=== PATIENT | female | born 1975 ===

== ENCOUNTER 2023-08-14 10:20 | Emergency (ER) | payer OTHER, SELFPAY ==
--- NOTE | ~2023-08-14 | XR_ITS ---
EXAMINATION: XR ABDOMEN KUB CLINICAL INDICATION: Constipation COMPARISON: None available. TECHNIQUE: AP view of the abdomen. FINDINGS: Large amount of stool in the colon suggestive of constipation. No evidence of obstruction or free air. No calcifications. Mild curvature of the lower lumbar spine to the left and degenerative change. XR/XR KUB IMPRESSION: Constipation.
[2023-08-14 10:24] VITALS: BP 137/65; PULSE 65; RESP 19; TEMP 37.2; O2SAT 98; BMI 30.9
--- NOTE | 2023-08-14 11:07 | ED.GENADULT ---
HPI - General Adult General Chief complaint: General Medical Stated complaint: tooth pain, constipation Time Seen by Provider: 08/14/23 11:18 History of Present Illness ED Provider: Patient with multiple complaints HPI narrative: Patient complains of most important right upper tooth pain for several weeks gradually getting worse 2nd complaint is right ear pain Third complaint is for many weeks she feels like her urine is coming more frequently, but no pain no fever no vomiting Fourth complaint is chronic constipation, no abdominal pain no nausea or vomiting no fever, this is an ongoing problem Related Data Previous Rx's ?Medication ?Instructions ?Recorded acetaminophen 500 mg tablet 1,000 mg (2 x 500 mg) PO QID PRN 08/14/23 pain #30 tabs amoxicillin 500 mg tablet 500 mg PO TID 7 days #21 tabs 08/14/23 bisacodyl 10 mg rectal suppository 10 mg NE DAILY PRN constipation 08/14/23 (Dulcolax (bisacodyl)) #12 ea bisacodyl 5 mg tablet,delayed 5 mg PO BEDTIME 2 days #2 tabs 08/14/23 release (Dulcolax (bisacodyl)) ibuprofen 600 mg tablet 600 mg PO Q6H PRN pain #20 tabs 08/14/23 sodium phosphates 19 gram-7 118 ml NE BEDTIME PRN constipation 08/14/23 gram/118 mL enema (Fleet Enema) #133 mL Allergies Allergy/AdvReac Type Severity Reaction Status Date / Time No Known Allergies Allergy Verified 08/14/23 10:26 COUNTS INCLUDE 234 BEDS AT THE [facility] Past Medical History Source: nursing notes reviewed Social History Social History Advance Directives: No Advance Directives Information Provided: No Physical Exam ED Vital Signs: Vital Signs - 24 hr 08/14/23 10:24 Temperature 98.9 F Pulse Rate 65 Respiratory Rate 19 Blood Pressure 137/65 Pulse Oximetry 98 Oxygen Delivery Method Room Air BMI result Body Mass Index 30.9 General appearance is no acute distress The ear exam the right and left ear are both normal in appearance with no redness or bulging of tympanic membrane no narrowing or inflammation of canals Dental exam patient has false teeth with many teeth removed, left upper incisor is very decayed, it is tender, there is no fluctuant abscess on the gum there is no impairment of breathing and swallowing no swelling under the tongue no trismus Respiratory no distress, lungs clear to auscultation bilateral The abdomen is soft nontender There is no CVA tenderness on back exam Extremities full range of motion x4 Course Course Course Narrative: This is an RME: Additional HPI, ROS, PE not included below will be deferred to primary provider. RME assessment and note performed by: Rebecca Stock PA-C This is a [id number]-female, with a past medical history of substance abuse on methadone, who presents emergency department with multiple complaints. She states that she has had dental pain x 1 month, as well as dysuria, constipation and right ear pain. Reporting Plan: UA, KUB xray KUB ordered from triage shows constipation and stool, no other acute finding Urinalysis did not show any sign of infection and patient history is not consistent with acute infection Dental exam shows dental caries but could not rule out possibility of an infection so she is treated with amoxicillin, there were no red flags with this no swelling under the tongue no impairment of breathing and swallowing no abscess on the gum that I could drain She is prescribed medication for constipation, Tylenol Motrin for pain and amoxicillin antibiotic for the teeth Patient ambulates easily and pain was improved with Tylenol and Motrin and was discharged Medications Administered Discontinued Medications Generic Name Dose Route Start Last Admin Trade Name Freq PRN Reason Stop Dose Admin Acetaminophen 975 mg 08/14/23 12:58 08/14/23 13:02 Acetaminophen 325 Mg Tablet PO 08/14/23 12:59 975 mg ONCE ONE Administration Amoxicillin 500 mg 08/14/23 13:57 08/14/23 13:59 Amoxicillin 500 Mg Capsule PO 08/14/23 13:58 500 mg ONCE ONE Administration Ibuprofen 600 mg 08/14/23 12:58 08/14/23 13:03 Ibuprofen 600 Mg Tablet PO 08/14/23 12:59 600 mg ONCE ONE Administration Medical Decision Making Lab Data Labs: Lab Results 08/14/23 Range/Units 11:32 Urine Color Yellow Urine Appearance Clear Urine pH 6.5 (5.0-9.0) Ur Specific [place] 1.025 (1.005-1.025) Urine Protein Negative (Neg-Trace) mg/dL Urine Glucose (UA) Negative (Negative) mg/dL Urine Ketones Negative (Negative) mg/dL Urine Blood Negative (Negative) Urine Nitrite Negative (Negative) Ur Leukocyte Esterase Trace H (Negative) Urine RBC 0-2 (0-2) /HPF Urine WBC 0-5 (0-5) /HPF Ur Squamous Epith Cells 0-2 (0-2) /HPF Urine Bacteria None Seen (None Seen) Hyaline Casts 0-2 (0-2) /LPF Discharge Plan Discharge Clinical Impression: Dental infection, Constipation Patient Disposition: Home, Self-Care Additional Instructions: Most important for your tooth is to see the dentist so keep calling and see if they could get an appointment sooner than 3 weeks to let you in If you get swelling or fever or anything worse with a teeth come back any time to the emergency room Your right ear exam was normal Urinalysis checking for urine infection was normal Use medications as directed for constipation Return any time if worse Prescriptions: New acetaminophen 500 mg tablet 1,000 mg PO QID PRN (Reason: pain) Qty: 30 0RF ibuprofen 600 mg tablet 600 mg PO Q6H PRN (Reason: pain) Qty: 20 0RF amoxicillin 500 mg tablet 500 mg PO TID 7 Days Qty: 21 0RF Fleet Enema 19-7 gram/118 mL enema 118 ml NE BEDTIME PRN (Reason: constipation) Qty: 133 0RF bisacodyl [Dulcolax (bisacodyl)] 10 mg suppository 10 mg NE DAILY PRN (Reason: constipation) Qty: 12 0RF bisacodyl [Dulcolax (bisacodyl)] 5 mg tablet,delayed release (DR/EC) 5 mg PO BEDTIME 2 Days Qty: 2 0RF Print Language: [place] Islander
[2023-08-14 11:41] LABS: Appearance Urine Clear; Color Urine Yellow; Glucose Urine UA Negative (Negative); Leukocyte Esterase Urine Trace (Negative); Nitrite Urine Negative (Negative); PH 6.5 (5.0-9.0); Specific Gravity - Urine 1.025 (1.005-1.025); UMIC TRIGGER UACC YES; Urine Blood Negative (Negative); Urine Ketones Negative (Negative); Urine Protein Negative (Neg-Trace)
[2023-08-14 11:57] LABS: Bacteria Urine None Seen (None Seen); Hyaline Casts Urine 0-2 /LPF (0-2); RBC Urine 0-2 /HPF (0-2); Squamous Epithelial Cell Urine 0-2 /HPF (0-2); WBC Urine 0-5 /HPF (0-5)
[2023-08-14] MEDS: Acetaminophen 325 MG TABLET 975 MG PO (13:02)
[2023-08-14] MEDS: Ibuprofen 600 MG TABLET PO (13:03)
--- NOTE | 2023-08-14 13:04 | PC.NURSE ---
pt medicated for 10 rt mouth/dental pain
[2023-08-14] MEDS: Amoxicillin 500 MG CAPSULE PO (13:59)
[2023-08-14 14:21] VITALS: BP 138/72; PULSE 67; RESP 18; TEMP 36.8; O2SAT 97
--- NOTE | 2023-08-14 14:48 | PC.NURSE ---
[facility] called this nurse after the patient was discharged, they requested that we call the clinical special assemblies supervisor so that the patient could be picked up. This nurse told them that the patient discharged already and the patient never divulged to this nurse that they were from [facility], they stated they were the patient was discharged as she had called and again requested us to speak with their clinical special assemblies supervisor. Upon their request this nurse called the clinical special assemblies supervisor and we reviewed what was done in the ED and they asked the ABX given, upon this nurse stating the patient was given amoxicillin, the special assemblies supervisor became cantankerous with staff stating that the patient had an allergy to amoxicillin on her paperwork, this nurse explained to the special assemblies supervisor that the patient never divulged that she had an allergy- she was asked in triage, additionally the provider also asked if she had any allergies prior to ordering the medication to take here and for discharge. The clinical special assemblies supervisor again stated that she had paperwork stating she had allergies, this nurse again told the special assemblies supervisor that the patient did NOT provide paperwork to this nurse or provider nor did she state she was allergic to medications. The special assemblies supervisor then spoke directly to the provider Alphonse Chaidez who reiterated the same thing this nurse had stated. Provider is to change the prescription based off the insistence of the clinical special assemblies supervisor despite the patient being a&ox3 and stating she has no allergy.
== END 2023-08-14 14:22 | disposition home or self-care (01) ==
PROVIDERS: Physician Assistant Medical; Emergency Provider Emergency Medicine
DX: K04.7 Periapical abscess without sinus (principal); K59.00 Constipation, unspecified; K08.89 Other specified disorders of teeth and supporting structures; R30.0 Dysuria; H92.01 Otalgia, right ear; F11.20 Opioid dependence, uncomplicated
CPT/HCPCS: 74018; 81001; 99283

== ENCOUNTER 2023-08-20 11:27 | Emergency (ER) | payer OTHER, SELFPAY ==
[2023-08-20 11:57] VITALS: BP 130/55; PULSE 69; RESP 18; TEMP 35.8; O2SAT 100; BMI 30.9
--- NOTE | 2023-08-20 11:57 | ED_ITS ---
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 She is from [place], currently in a program [facility] in [place], reports she was given an extension for 14 days of treatment here, apparently the clinic in [place] was supposed to send some form of paperwork to the clinic here but they never received that. When she presented to the clinic today they would no longer dose her without that paper. She states she has been taking methadone 130 mg, and was last dose yesterday. Denies recreational drug usage. Related Data Previous Rx's ?Medication ?Instructions ?Recorded acetaminophen 500 mg tablet 1,000 mg (2 x 500 mg) PO QID PRN 08/14/23 pain #30 tabs amoxicillin 500 mg tablet 500 mg PO TID 7 days #21 tabs 08/14/23 bisacodyl 10 mg rectal suppository 10 mg OR DAILY PRN constipation 08/14/23 (Dulcolax (bisacodyl)) #12 ea bisacodyl 5 mg tablet,delayed 5 mg PO BEDTIME 2 days #2 tabs 08/14/23 release (Dulcolax (bisacodyl)) ibuprofen 600 mg tablet 600 mg PO Q6H PRN pain #20 tabs 08/14/23 sodium phosphates 19 gram-7 118 ml OR BEDTIME PRN constipation 08/14/23 gram/118 mL enema (Fleet Enema) #133 mL Allergies Allergy/AdvReac Type Severity Reaction Status Date / Time No Known Allergies Allergy Verified 08/20/23 12:02 Review of Systems Review of Systems: Yes all other systems are reviewed and are negative PMFSH Past Medical History Attestation statement: The following information was validated with the patient. Source: old records reviewed Social History Social History Advance Directives: No Advance Directives Information Provided: Yes Physical Exam ED Vital Signs: Vital Signs - 24 hr 08/20/23 11:57 08/20/23 16:00 08/20/23 17:07 Temperature 96.5 F L 97.7 F 97.7 F Pulse Rate 69 62 62 Respiratory Rate 18 18 Blood Pressure 130/55 L 123/53 L 123/53 L Pulse Oximetry 100 100 100 Oxygen Delivery Method Room Air Room Air Room Air BMI result Body Mass Index 30.9 Appearance: Alert.?Oriented to person, place and time. No acute distress.?Normal affect.?? Neck: Normal inspection.? Neck supple.?? CVS: Heart sounds normal. Normal heart rate and rhythm.? Pulses normal.?? Respiratory: No respiratory distress.? Lung sounds clear to auscultation bilaterally?? Abdomen: Soft and non-tender. Normoactive bowel sounds. Skin: Skin warm and dry.? Normal skin color.? Extremities: No lower extremity edema.? Neuro: Moves all extremities spontaneously. Sensation intact bilaterally. CN II- XII intact. No focal neuro deficits. Ambulates with normal steady gait. Course Reevaluation(s) Reevaluation #1: Spoke with addiction medicine, patient from the waiting room asked to assist with obtaining last dosing letter as the clinic is soon to close. She plans to call the clinic and provide our fax information to request last dosing letter. Spoke with Lindsey Brooks RN addiction Medicine, who advises that patient if dosed in the emergency department here today receives a last dose letter she should be able to follow-up at [facility] methadone clinic without further difficulty Time: 12:36 Reevaluation #2: Patient was unable to make contact with the clinic. Called and spoke with [facility] where she is currently staying, received information that she is currently being dosed at [facility] in [facility], was able to obtain dosing records from their facility, last dosed with methadone 130 mg on 08/19/2023. Reevaluation #3: Addiction Medicine RN Lindsey Brooks met with patient using verification lead. She received her dose of methadone today and will be provided with a last dose letter. Provided with instruction to follow-up at [facility] clinic [place] Time: 16:29 Medications Administered Discontinued Medications Generic Name Dose Route Start Last Admin Trade Name Freq PRN Reason Stop Dose Admin Methadone HCl 130 mg 08/20/23 15:49 08/20/23 16:58 Methadone Hcl 20 Mg/2 Ml Oral.Conc PO 08/20/23 15:50 130 mg ONCE ONE Administration Medical Decision Making Medical Decision Making MDM Narrative: Patient is a 47-year-old female past medical history of substance use disorder presenting to emergency department requesting assistance with methadone dosing as per HPI. She denies any recreational drug usage. She denies any physical complaints at this time. Her physical examination is benign. Will attempt to obtain last dosing letter from her clinic and consult with addiction medicine regarding her difficulties with clinic. Differential Diagnosis Differential Diagnoses: The differential diagnosis associated with the presentation includes (Opioid use disorder, medication refill) Consult Healthcare Provider Management of the patient was discussed with: Behavioral Health Provider (Addiction medicine as per course narrative) External Record Review External record reviewed: Outpatient record Social Determinants Patient?s care significantly limited by Social Determinants of Health including: Inadequate housing and Alcoholism and drug addiction in family Discharge Plan Discharge Clinical Impression: Opioid use disorder Patient Disposition: Home, Self-Care Instructions: Opioid Use Disorder (ED) Additional Instructions: You were seen in the ED today and received Methadone 130mg. Please follow-up at [facility] Clinic in [address] Prescriptions: No Action acetaminophen 500 mg tablet 1,000 mg PO QID PRN (Reason: pain) Qty: 30 0RF ibuprofen 600 mg tablet 600 mg PO Q6H PRN (Reason: pain) Qty: 20 0RF amoxicillin 500 mg tablet 500 mg PO TID 7 Days Qty: 21 0RF Fleet Enema 19-7 gram/118 mL enema 118 ml OR BEDTIME PRN (Reason: constipation) Qty: 133 0RF bisacodyl [Dulcolax (bisacodyl)] 10 mg suppository 10 mg OR DAILY PRN (Reason: constipation) Qty: 12 0RF bisacodyl [Dulcolax (bisacodyl)] 5 mg tablet,delayed release (DR/EC) 5 mg PO BEDTIME 2 Days Qty: 2 0RF Referrals: Treva Hurt CNP [Nurse Practitioner] - Interventions: ED Discharge Assessment Last Done: 08/20/23 17:07 Discharge Date/Time: 08/20/23 17:07 Print Language: Ghanaian
[2023-08-20 16:00] VITALS: BP 123/53; PULSE 62; TEMP 36.5; O2SAT 100
--- NOTE | 2023-08-20 16:11 | HE.PHANOTE ---
RE: METHADONE Pharmacy has received patients methadone verification form. Patient last dosed with 130 mg of methadone with [facility] [phone] on 08/19/23 @[id number]
[2023-08-20] MEDS: methADONE HCl 20 MG/2 ML ORAL.CONC 130 MG PO (16:58)
--- NOTE | 2023-08-20 17:03 | PC.NURSE ---
medicated per MAR- last dose letter provided
[2023-08-20 17:07] VITALS: BP 123/53; PULSE 62; RESP 18; TEMP 36.5; O2SAT 100
== END 2023-08-20 17:07 | disposition home or self-care (01) ==
PROVIDERS: Emergency Provider Emergency Medicine Emergency Medical Services
DX: F11.10 Opioid abuse, uncomplicated (principal); Z79.899 Other long term (current) drug therapy
CPT/HCPCS: 99283

== ENCOUNTER 2023-09-29 13:17 | Emergency (ER) | payer OTHER, SELFPAY ==
--- NOTE | 2023-09-29 13:39 | ED.GENADULT ---
HPI - General Adult General Chief complaint: General Medical Stated complaint: needs methadone dose Time Seen by Provider: 09/29/23 16:35 Source: patient and RN notes reviewed Mode of arrival: ambulatory Limitations: no limitations History of Present Illness ED Provider: Rebecca Stock PA-C HPI narrative: This is a 47-year-old female, with a history of opioid use disorder on methadone, who presents emergency department with complaints of headache, chills and feeling as though she is in withdrawal. She states that she is here for methadone dosing as she did not realize the clinic would be closed at this hour. She last received a methadone dose yesterday. No fevers, chills, CP or SOB. She denies any other complaints or concerns at this time. MD complaint: Methadone dose Relieving factors: none Exacerbating factors: none Associated symptoms: denies other symptoms Treatments prior to arrival: none Related Data Home Medications ?Medication ?Instructions ?Recorded ?Confirmed methadone 10 mg/mL oral 140 mg PO DAILY 09/30/23 09/30/23 concentrate (Methadone Intensol) Previous Rx's ?Medication ?Instructions ?Recorded acetaminophen 500 mg tablet 1,000 mg (2 x 500 mg) PO QID PRN 08/14/23 pain #30 tabs amoxicillin 500 mg tablet 500 mg PO TID 7 days #21 tabs 08/14/23 bisacodyl 10 mg rectal suppository 10 mg OR DAILY PRN constipation 08/14/23 (Dulcolax (bisacodyl)) #12 ea bisacodyl 5 mg tablet,delayed 5 mg PO BEDTIME 2 days #2 tabs 08/14/23 release (Dulcolax (bisacodyl)) ibuprofen 600 mg tablet 600 mg PO Q6H PRN pain #20 tabs 08/14/23 sodium phosphates 19 gram-7 118 ml OR BEDTIME PRN constipation 08/14/23 gram/118 mL enema (Fleet Enema) #133 mL Allergies Allergy/AdvReac Type Severity Reaction Status Date / Time Penicillins Allergy Itching Verified 09/29/23 13:45 Review of Systems Review of Systems: Yes all other systems are reviewed and are negative PMFSH Social History Social History Advance Directives: No Advance Directives Information Provided: No Do you have a plan to hurt others: No Plan Physical Exam ED Vital Signs: Vital Signs - 24 hr 09/29/23 13:43 Temperature 97.8 F Pulse Rate 65 Respiratory Rate 17 Blood Pressure 155/65 H Pulse Oximetry 99 Oxygen Delivery Method Room Air BMI result Body Mass Index 34.0 Const Other: General: Awake, alert, and oriented X3. No acute distress. HEENT: Normal inspection CVS: Normal heart rate and rhythm. Pulses normal. Respiratory: No respiratory distress Skin: Warm, dry, no rashes noted to exposed skin. Normal skin color. Normal skin turgor. Extremities: Normal to inspection Neuro: Oriented X 3. No motor deficit. No sensory deficit. Course Course Course Narrative: This is an RME: Additional HPI, ROS, PE not included below will be deferred to primary provider. RME assessment and note performed by: Rebecca Stock PA-C This is a 74-wvhf-bzv-female who presents to the ER for methadone dose. Methadone clinic, [facility] was closed today. She was in her psychology appt and got out late and the clinic was closed. Last was yesterday, on methadone 140mg. Plan: Need to call for last dose. Medical Decision Making Medical Decision Making MDM Narrative: 47 y/o F, with a hx of opioid use disorder on methadone, presenting to the ER for methadone dosing. She reports last dose was yesterday, reporting mild withdrawal symptoms. She is alert and oriented x 4, VSS. Called over to clinic multiple times and there was no answer. Multiple attempts made and finally got a hold of nurse who confirmed dosing of 140mg of methadone. This was ordered, however upon reassessment and administration of methadone, patient left the ER without receiving dose. Clinic called as they report pt is now at the clinic to receive dose. She did not get dose at the ED today. Differential Diagnosis Differential Diagnoses: The differential diagnosis associated with the presentation includes opioid use disorder, methadone dose, polysubstance abuse, anxiety Discharge Plan Discharge Clinical Impression: Substance abuse Patient Disposition: Left W/O Completing Treatment Prescriptions: No Action acetaminophen 500 mg tablet 1,000 mg PO QID PRN (Reason: pain) Qty: 30 0RF ibuprofen 600 mg tablet 600 mg PO Q6H PRN (Reason: pain) Qty: 20 0RF amoxicillin 500 mg tablet 500 mg PO TID 7 Days Qty: 21 0RF Fleet Enema 19-7 gram/118 mL enema 118 ml OR BEDTIME PRN (Reason: constipation) Qty: 133 0RF bisacodyl [Dulcolax (bisacodyl)] 10 mg suppository 10 mg OR DAILY PRN (Reason: constipation) Qty: 12 0RF bisacodyl [Dulcolax (bisacodyl)] 5 mg tablet,delayed release (DR/EC) 5 mg PO BEDTIME 2 Days Qty: 2 0RF methadone [Methadone Intensol] 10 mg/mL Concentrate 140 mg PO DAILY Discharge Date/Time: 09/29/23 18:32
[2023-09-29 13:43] VITALS: BP 155/65; PULSE 65; RESP 17; TEMP 36.6; O2SAT 99; BMI 34.0
--- NOTE | 2023-09-29 15:13 | PC.NURSE ---
Patient goes to [facility] in [place] for methadone. Attempted to speak to someone from the clinic to verify dose but no one answered.
--- NOTE | 2023-09-29 17:06 | PC.NURSE ---
Spoke with [facility] who told this nurse that patient is at their facility to obtain daily dose of Methadone.
--- NOTE | 2023-09-30 09:49 | HE.PHANOTE ---
Re Methadone Received methadone verification form from nursing. Pt gets 140mg outpatient from [facility]. Last dose they administered was on 09/28/23 @0900.
== END 2023-09-29 18:32 | disposition left against medical advice (07) ==
LOC: HO.ED 18:31
PROVIDERS: Emergency Provider Emergency Medicine
DX: F19.10 Other psychoactive substance abuse, uncomplicated (principal); F11.20 Opioid dependence, uncomplicated
CPT/HCPCS: 99281